=== PATIENT | female | born 1965 | race Two or more races ===

== ENCOUNTER 2021-04-30 10:56 | Day surgery (SDC) | payer OTHER ==
[~2021-04-30 10:56] MED LIST: CLARITIN10 M1 PO; LOSARTAN-HCTZ1 EACH PO; PEPCID AC10 MG PO; SIMVASTATIN20 MG PO
[2021-04-30] MEDS ORDERED: KETO10TA2 PO (15:56)
== END 2021-04-30 20:15 | disposition home or self-care (01) ==
LOC: CIR.AMB 10:56
PROVIDERS: ATTEND Obstetrics & Gynecology
DX: D07.1 Carcinoma in situ of vulva (principal); Z20.822 Contact with and (suspected) exposure to COVID-19